=== PATIENT | female | born 1935 | race Caucasian/White ===

== ENCOUNTER 2019-03-09 19:01 | Emergency (ER) | payer MEDICARE, OTHER ==
[~2019-03-09] VITALS: Ht 152.4 cm; Wt 62.6 kg
[~2019-03-09 19:01] MED LIST: BENA5TAB5 PO; ROSU5TAB PO
--- NOTE | 2019-03-09 19:23 | NUR ---
BIBS. C/O "FEELING DIZZY AT HOME. MY BP WAS IN THE 200S" -SOB AOX4 . VSS. AMBULATORY. -NEURO DEFICITS NOTED.
--- NOTE | 2019-03-09 19:35 | NUR ---
LAB AT BEDSIDE FOR BLOOD DRAW
[2019-03-09 19:41] LABS: BASOPHILS # (AUTO) 0.1 /CMM (0.0-0.2); BASOPHILS % (AUTO) 0.7 % (0.0-2.0); EOSINOPHILS % (AUTO) 1.8 % (0.0-6.0); HEMATOCRIT 42 % (33-45); HEMOGLOBIN 13.8 g/dL (11.5-14.8); LYMPHOCYTES # (AUTO) 2.1 /CMM (0.8-4.8); LYMPHOCYTES % (AUTO) 24.1 % (20.0-44.0); MEAN CORPUSCULAR HGB CONC 33 g/dl (31.0-36.0); MEAN CORPUSCULAR VOLUME 84 fL (82-100); MONOCYTES # (AUTO) 0.6 /CMM (0.1-1.30); MONOCYTES % (AUTO) 7.2 % (2.0-12.0); NEUTROPHILS # (AUTO) 5.7 /CMM (1.8-8.9); NEUTROPHILS % (AUTO) 66.2 % (43.0-81.0); PLATELET COUNT (AUTO) 251 /CMM (150-450); RED BLOOD CELL COUNT(AUTO) 5.01 MIL/uL (4.0-5.2); WHITE BLOOD COUNT (AUTO) 8.5 K/uL (4.3-11.0)
[2019-03-09 20:00] LABS: ALANINE AMINOTRANSFERASE 35 U/L (12-78); ALBUMIN 4.2 g/dL (3.4-5.0); ALKALINE PHOSPHATASE 57 U/L (46-116); ASPARTATE AMINOTRANSFERASE 26 U/L (15-37); BILIRUBIN,DIRECT 0.1 mg/dL (0.0-0.2); BILIRUBIN,TOTAL 0.3 mg/dL (0.2-1.0); CALCIUM, SERUM 9.5 mg/dL (8.5-10.1); CARBON DIOXIDE 30 mmol/L (21-32); CHLORIDE 96 mmol/L (98-107); CREATININE 0.7 mg/dL (0.6-1.3); GLUCOSE 110 mg/dL (74-106); POTASSIUM 3.7 mmol/L (3.5-5.1); SODIUM SERUM 134 mmol/L (136-145); UREA NITROGEN, BLOOD 19 mg/dL (7-18)
[2019-03-09 20:41] VITALS: BP 141/78
== END 2019-03-09 20:42 | disposition home or self-care (01) ==
LOC: ER 19:03
DX: R42 Dizziness and giddiness (principal); I10 Essential (primary) hypertension; Z79.899 Other long term (current) drug therapy
CPT/HCPCS: 36415; 71045-TC; 80048-TC; 80076-TC; 84484-TC; 85025-TC

== ENCOUNTER 2022-03-31 10:23 | Emergency (ER) | payer MEDICARE, OTHER ==
[~2022-03-31] VITALS: Ht 152.4 cm; Wt 63.5 kg
[2022-03-31] MEDS: CYCLOBENZAPRINE 10 MG TABLET PO ONE (11:00)
[2022-03-31] MEDS: KETOROLAC TROMETHAMINE INJ 30 MG/ML VIAL IM ONE (11:00)
--- NOTE | 2022-03-31 11:00 | NUR ---
BIBFAMILY C/O CHEST WALL DISCOMFORT, PAIN TAKING DEEP BREATHS S/P GLF 3 DAYS AGO. AMBULATORY, PLACED ON BED, BREATHING EVEN AND UNLABORED SATURATING AT 96%RA.
[2022-03-31] MEDS ORDERED: KETOROLAC TROMETHAMINE INJ 30 MG/ML VIAL ONE (11:05)
[2022-03-31] MEDS ORDERED: CYCLOBENZAPRINE 10 MG TABLET ONE (11:05)
--- NOTE | 2022-03-31 11:13 | NUR ---
PATIENT TAKEN TO CT VIA [facility]
[2022-03-31] MEDS ORDERED: CYCL5TAB PO (13:17)
[2022-03-31] MEDS ORDERED: KETO10TA2 PO (13:17)
[2022-03-31 13:55] VITALS: BP 132/88
--- NOTE | 2022-03-31 13:55 | NUR ---
Patient discharged to home in stable condition. Written and verbal after care instructions given. Patient verbalizes understanding of instruction.
== END 2022-03-31 13:55 | disposition home or self-care (01) ==
LOC: ER 10:35
DX: R07.89 Other chest pain (principal); I10 Essential (primary) hypertension
CPT/HCPCS: 99284; 71250; 96372; 93005; J1885

== ENCOUNTER 2024-08-06 14:11 | Emergency (ER) | payer MEDICARE, OTHER ==
[~2024-08-06] VITALS: Ht 152.4 cm; Wt 63.5 kg
[~2024-08-06 14:11] MED LIST changes: +CYCL5TAB PO; +KETO10TA2 PO
[2024-08-06] MEDS ORDERED: CYCLOBENZAPRINE 10 MG TABLET ONE (14:50)
[2024-08-06] MEDS ORDERED: IBUPROFEN 600 MG TABLET ONE (14:51)
[2024-08-06] MEDS: CYCLOBENZAPRINE 10 MG TABLET PO ONE (14:54)
[2024-08-06] MEDS: IBUPROFEN 600 MG TABLET PO ONE (14:55)
[2024-08-06 15:40] VITALS: BP 123/84; TEMP 97.9; O2SAT 98
== END 2024-08-06 15:41 | disposition home or self-care (01) ==
LOC: ER 14:15
DX: S70.02XA Contusion of left hip, initial encounter (principal); I10 Essential (primary) hypertension; Z79.899 Other long term (current) drug therapy; W18.39XA Other fall on same level, initial encounter; Y93.89 Activity, other specified; Y92.89 Other specified places as the place of occurrence of the external cause; Y99.8 Other external cause status
CPT/HCPCS: 73502

== ENCOUNTER 2024-08-08 10:26 | Emergency (ER) | payer MEDICARE, OTHER ==
[~2024-08-08] VITALS: Ht 167.6 cm; Wt 65.3 kg
[2024-08-08 11:07] LABS: BASOPHILS # (AUTO) 0.1 K/uL (0.0-0.2); BASOPHILS % (AUTO) 0.6 % (0.0-2.0); EOSINOPHILS # (AUTO) 0.1 K/uL (0.0-0.7); EOSINOPHILS % (AUTO) 0.7 % (0.0-6.0); HEMATOCRIT 41 % (33-45); HEMOGLOBIN 13.1 g/dL (11.5-14.8); LYMPHOCYTES # (AUTO) 1.7 K/uL (0.8-4.8); LYMPHOCYTES % (AUTO) 19.4 % (20.0-44.0); MEAN CORPUSCULAR HEMOGLOBIN 27 PG (26.0-33.0); MEAN CORPUSCULAR HGB CONC 32 g/dl (31.0-36.0); MEAN CORPUSCULAR VOLUME 83 fL (82-100); MONOCYTES # (AUTO) 0.5 K/uL (0.1-1.30); MONOCYTES % (AUTO) 5.8 % (2.0-12.0); NEUTROPHILS # (AUTO) 6.3 K/uL (1.8-8.9); NEUTROPHILS % (AUTO) 73.5 % (43.0-81.0); PLATELET COUNT (AUTO) 226 K/uL (150-450); RED BLOOD CELL COUNT(AUTO) 4.91 MIL/uL (4.0-5.2); RED CELL DISTRIBUTION WIDTH 13.8 % (11.5-15.0); WHITE BLOOD COUNT (AUTO) 8.6 K/uL (4.3-11.0)
[2024-08-08 11:09] LABS: CALCIUM, SERUM 9.3 mg/dL (8.5-10.1); CREATININE 0.7 mg/dL (0.6-1.3); POTASSIUM 4.3 mmol/L (3.5-5.1)
[2024-08-08 11:26] LABS: ALBUMIN 3.6 g/dL (3.4-5.0); BILIRUBIN,DIRECT 0.1 mg/dL (0.0-0.2); BILIRUBIN,TOTAL 0.4 mg/dL (0.2-1.0); TOTAL PROTEIN, SERUM 7.2 g/dL (6.4-8.2)
[2024-08-08 12:07] LABS: APPEARANCE,URINE CLEAR (CLEAR); BILIRUBIN,URINE NEGATIVE (NEGATIVE); BLOOD, URINE TRACE-INTA Ery/uL (NEGATIVE); COLOR,URINE YELLOW (YELLOW); KETONES,URINE NEGATIVE (NEGATIVE); LEUKOCYTE ESTERASE ,URINE NEGATIVE (NEGATIVE); NITRITE, URINE NEGATIVE (NEGATIVE); PROTEIN,URINE NEGATIVE (NEGATIVE); UGLUCOSE NEGATIVE (NEGATIVE); UROBILINOGEN,URINE 0.2 EU/dL (0.2)
[2024-08-08 12:17] LABS: ADD URINE CULTURE NO; BACTERIA,URINE Few /HPF (None Seen); RBC,URINE 0-2 /HPF (0-2)
[2024-08-08 12:18] LABS: SQUAMOUS EPITHELIAL CELL,UR 0-2 /HPF (None Seen)
[2024-08-08] MEDS ORDERED: LIDO30AD10 TP (12:40)
[2024-08-08] MEDS ORDERED: ACET-2605 PO (12:40)
[2024-08-08] MEDS ORDERED: LIDOCAINE 5% (PATCH) 1 EA PATCH TP ONE (12:58)
[2024-08-08] MEDS ORDERED: ACETAMINOPHEN 325 MG TABLET ONE (12:58)
[2024-08-08] MEDS: ACETAMINOPHEN 325 MG TABLET PO ONE (13:04)
[2024-08-08] MEDS: LIDOCAINE 5% (PATCH) 1 EA PATCH TP STA (13:04)
[2024-08-08 13:06] VITALS: BP 143/80; TEMP 98.7; O2SAT 98
== END 2024-08-08 13:06 | disposition home or self-care (01) ==
LOC: ER 10:30
DX: S32.010A Wedge compression fracture of first lumbar vertebra, initial encounter for closed fracture (principal); M54.50 Low back pain, unspecified; R10.32 Left lower quadrant pain; K57.30 Diverticulosis of large intestine without perforation or abscess without bleeding; M51.369 Other intervertebral disc degeneration, lumbar region without mention of lumbar back pain or lower extremity pain; N28.1 Cyst of kidney, acquired; I10 Essential (primary) hypertension; E11.9 Type 2 diabetes mellitus without complications; I70.0 Atherosclerosis of aorta; W18.39XA Other fall on same level, initial encounter; Y93.89 Activity, other specified; Y92.89 Other specified places as the place of occurrence of the external cause; Y99.8 Other external cause status; Z79.899 Other long term (current) drug therapy
CPT/HCPCS: 36415; 71045-TC; 80048-TC; 80076-TC; 81001; 82962-TC; 83690-TC; 85025-TC